=== PATIENT | male | born 1965 | race Caucasian/White ===

== ENCOUNTER 2025-06-23 11:32 | Outpatient (RCR) | payer SELFPAY ==
[2025-06-23] MEDS: Normal Saline Flush 10 ML SYR IVP (11:47)
[2025-06-23 11:55] LABS: Abs Immature Grans 0.03 10^3/uL (0.0-0.06); HCT 38.1 % (40.0-50.0); HGB 12.9 g/dL (13.5-17.5); Immature Grans % 0.4 %; MCH 32.0 pg (27.0-33.0); MCHC 33.9 % (32.0-36.0); MCV 95 fL (80-95); MPV 9.6 fL (8.0-11.0); Platelet Count 279 10^3/uL (130-400); RBC 4.03 10^6/uL (4.36-5.78); RDW 13.2 % (11.8-14.1); RDW-SD 46.0 fL; WBC 7.01 10^3/uL (4.4-10.8)
[2025-06-23 12:19] LABS: ALT 40 U/L (16-63); AST 18 U/L (15-37); Albumin 4.0 g/dL (3.4-5.0); Alkaline Phosphatase 99 U/L (46-116); Anion Gap 10.0 mmol/L (3-11); BUN 16 mg/dL (7-18); Bilirubin, Total 0.4 mg/dL (0.2-1.0); CO2 25.0 mmol/L (21.0-32.0); Calcium 9.2 mg/dL (8.5-10.1); Chloride 107 mmol/L (98-107); Estimated GFR 85.63 (mL/min/1.73m2); Glucose 109 mg/dL (74-106); Magnesium 2.2 mg/dL (1.8-2.4); Potassium 4.1 mmol/L (3.5-5.1); Sodium 142 mmol/L (136-145); Total Protein 7.7 g/dL (6.4-8.2)
== END 2025-06-27 23:59 | disposition home or self-care (01) ==
LOC: INF 11:32
PROVIDERS: Visit Provider Internal Medicine Hematology
DX: Z45.2 Encounter for adjustment and management of vascular access device (principal); C02.9 Malignant neoplasm of tongue, unspecified
CPT/HCPCS: 36591; 80053; 83735; 85025

== ENCOUNTER 2025-07-21 03:17 | Outpatient (RCR) | payer BC, SELFPAY ==
[2025-06-30 10:37] LABS: Abs Immature Grans 0.21 10^3/uL (0.0-0.06); HCT 35.4 % (40.0-50.0); HGB 11.8 g/dL (13.5-17.5); Immature Grans % 2.2 %; MCH 31.2 pg (27.0-33.0); MCHC 33.3 % (32.0-36.0); MCV 94 fL (80-95); MPV 9.5 fL (8.0-11.0); Platelet Count 295 10^3/uL (130-400); RBC 3.78 10^6/uL (4.36-5.78); RDW 12.9 % (11.8-14.1); RDW-SD 44.5 fL; WBC 9.56 10^3/uL (4.4-10.8)
[2025-06-30] MEDS: Normal Saline Flush 10 ML SYR IVP (10:52)
[2025-06-30 11:17] LABS: ALT 39 U/L (16-63); AST 14 U/L (15-37); Albumin 3.7 g/dL (3.4-5.0); Alkaline Phosphatase 95 U/L (46-116); Anion Gap 9.4 mmol/L (3-11); BUN 17 mg/dL (7-18); Bilirubin, Total 0.3 mg/dL (0.2-1.0); CO2 25.6 mmol/L (21.0-32.0); Calcium 9.5 mg/dL (8.5-10.1); Chloride 106 mmol/L (98-107); Estimated GFR 100.69 (mL/min/1.73m2); Glucose 87 mg/dL (74-106); Magnesium 1.9 mg/dL (1.8-2.4); Potassium 3.8 mmol/L (3.5-5.1); Sodium 141 mmol/L (136-145); Total Protein 7.3 g/dL (6.4-8.2)
[2025-07-07 10:13] LABS: Abs Immature Grans 0.11 10^3/uL (0.0-0.06); HCT 34.8 % (40.0-50.0); HGB 11.7 g/dL (13.5-17.5); Immature Grans % 1.1 %; MCH 31.6 pg (27.0-33.0); MCHC 33.6 % (32.0-36.0); MCV 94 fL (80-95); MPV 9.0 fL (8.0-11.0); Platelet Count 286 10^3/uL (130-400); RBC 3.70 10^6/uL (4.36-5.78); RDW 13.2 % (11.8-14.1); RDW-SD 45.3 fL; WBC 9.91 10^3/uL (4.4-10.8)
[2025-07-07 10:36] LABS: ALT 36 U/L (16-63); AST 12 U/L (15-37); Albumin 3.5 g/dL (3.4-5.0); Alkaline Phosphatase 99 U/L (46-116); Anion Gap 8.9 mmol/L (3-11); BUN 18 mg/dL (7-18); Bilirubin, Total 0.3 mg/dL (0.2-1.0); CO2 26.1 mmol/L (21.0-32.0); Calcium 8.6 mg/dL (8.5-10.1); Chloride 104 mmol/L (98-107); Estimated GFR 100.69 (mL/min/1.73m2); Glucose 94 mg/dL (74-106); Magnesium 2.0 mg/dL (1.8-2.4); Potassium 4.0 mmol/L (3.5-5.1); Sodium 139 mmol/L (136-145); Total Protein 7.2 g/dL (6.4-8.2)
[2025-07-07] MEDS: Normal Saline Flush 10 ML SYR IVP (10:40)
[2025-07-14 11:24] LABS: Abs Immature Grans 0.10 10^3/uL (0.0-0.06); HCT 36.2 % (40.0-50.0); HGB 12.0 g/dL (13.5-17.5); Immature Grans % 1.2 %; MCH 31.6 pg (27.0-33.0); MCHC 33.1 % (32.0-36.0); MCV 95 fL (80-95); MPV 9.0 fL (8.0-11.0); Platelet Count 262 10^3/uL (130-400); RBC 3.80 10^6/uL (4.36-5.78); RDW 13.3 % (11.8-14.1); RDW-SD 46.1 fL; WBC 8.33 10^3/uL (4.4-10.8)
[2025-07-14 11:40] LABS: Magnesium 2.0 mg/dL (1.6-2.6)
[2025-07-14 11:42] LABS: ALT 30 U/L (10-49); AST 16 U/L (<34); Albumin 4.4 g/dL (3.4-5.0); Alkaline Phosphatase 105 U/L (46-116); Anion Gap 7.5 mmol/L (3-11); BUN 22 mg/dL (9-23); Bilirubin, Total 0.40 mg/dL (0.2-1.2); CO2 24.5 mmol/L (20.0-31.0); Calcium 9.3 mg/dL (8.3-10.6); Chloride 107 mmol/L (98-107); Glucose 113 mg/dL (74-106); Potassium 4.3 mmol/L (3.5-5.1); Sodium 139 mmol/L (136-145); Total Protein 7.3 g/dL (5.7-8.2)
[2025-07-14] MEDS: Normal Saline Flush 10 ML SYR IVP (12:34)
[2025-07-21] MEDS: Normal Saline Flush 10 ML SYR IVP (11:15)
[2025-07-21 11:41] LABS: Abs Immature Grans 0.05 10^3/uL (0.0-0.06); HCT 34.8 % (40.0-50.0); HGB 11.9 g/dL (13.5-17.5); Immature Grans % 0.9 %; MCH 32.7 pg (27.0-33.0); MCHC 34.2 % (32.0-36.0); MCV 96 fL (80-95); MPV 9.2 fL (8.0-11.0); Platelet Count 181 10^3/uL (130-400); RBC 3.64 10^6/uL (4.36-5.78); RDW 13.4 % (11.8-14.1); RDW-SD 46.1 fL; WBC 5.77 10^3/uL (4.4-10.8)
[2025-07-21 12:00] LABS: Magnesium 1.8 mg/dL (1.6-2.6)
[2025-07-21 12:02] LABS: ALT 52 U/L (10-49); AST 20 U/L (<34); Albumin 4.4 g/dL (3.4-5.0); Alkaline Phosphatase 110 U/L (46-116); Anion Gap 10.8 mmol/L (3-11); BUN 29 mg/dL (9-23); Bilirubin, Total 0.40 mg/dL (0.2-1.2); CO2 23.2 mmol/L (20.0-31.0); Calcium 8.9 mg/dL (8.3-10.6); Chloride 107 mmol/L (98-107); Glucose 98 mg/dL (74-106); Potassium 3.9 mmol/L (3.5-5.1); Sodium 141 mmol/L (136-145); Total Protein 7.0 g/dL (5.7-8.2)
== END 2025-07-27 23:59 | disposition home or self-care (01) ==
LOC: INF 03:17
PROVIDERS: PCP Physician Assistant Medical; Visit Provider Internal Medicine Hematology
DX: C02.9 Malignant neoplasm of tongue, unspecified (principal)
CPT/HCPCS: 36591; 80053; 83735; 85025

== ENCOUNTER 2025-08-11 09:25 | Outpatient (REF) | payer BC, SELFPAY ==
[2025-08-11 09:31] LABS: Abs Immature Grans 0.02 10^3/uL (0.0-0.06); HCT 26.0 % (40.0-50.0); HGB 9.0 g/dL (13.5-17.5); Immature Grans % 0.7 %; MCH 32.4 pg (27.0-33.0); MCHC 34.6 % (32.0-36.0); MCV 94 fL (80-95); MPV 10.0 fL (8.0-11.0); Platelet Count 191 10^3/uL (130-400); RBC 2.78 10^6/uL (4.36-5.78); RDW 14.6 % (11.8-14.1); RDW-SD 46.7 fL; WBC 2.99 10^3/uL (4.4-10.8)
[2025-08-11 09:48] LABS: Magnesium 1.4 mg/dL (1.6-2.6)
[2025-08-11 09:50] LABS: ALT 69 U/L (10-49); AST 22 U/L (<34); Albumin 4.2 g/dL (3.2-5.0); Alkaline Phosphatase 92 U/L (46-116); Anion Gap 10.4 mmol/L (3-11); BUN 32 mg/dL (9-23); Bilirubin, Total 0.3 mg/dL (0.2-1.2); CO2 26.6 mmol/L (20.0-31.0); Calcium 10.4 mg/dL (8.3-10.6); Chloride 103 mmol/L (98-107); Glucose 97 mg/dL (74-106); Potassium 3.3 mmol/L (3.5-5.1); Sodium 140 mmol/L (136-145); Total Protein 6.7 g/dL (5.7-8.2)
== END 2025-08-11 09:26 | disposition home or self-care (01) ==
LOC: LBN 09:25
PROVIDERS: PCP Physician Assistant Medical; Visit Provider Internal Medicine Hematology
DX: C02.9 Malignant neoplasm of tongue, unspecified (principal)
CPT/HCPCS: 80053; 83735; 85025

== ENCOUNTER 2025-08-25 00:32 | Outpatient (RCR) | payer BC, SELFPAY ==
[2025-07-28] MEDS: Normal Saline Flush 10 ML SYR IVP (10:39)
[2025-07-28 11:14] LABS: Abs Immature Grans 0.02 10^3/uL (0.0-0.06); HCT 31.4 % (40.0-50.0); HGB 10.7 g/dL (13.5-17.5); Immature Grans % 0.5 %; MCH 32.3 pg (27.0-33.0); MCHC 34.1 % (32.0-36.0); MCV 95 fL (80-95); MPV 9.9 fL (8.0-11.0); Platelet Count 183 10^3/uL (130-400); RBC 3.31 10^6/uL (4.36-5.78); RDW 13.4 % (11.8-14.1); RDW-SD 45.3 fL; WBC 4.17 10^3/uL (4.4-10.8)
[2025-07-28 11:28] LABS: Magnesium 1.9 mg/dL (1.6-2.6)
[2025-07-28 11:41] LABS: ALT 65 U/L (10-49); AST 25 U/L (<34); Albumin 4.3 g/dL (3.2-5.0); Alkaline Phosphatase 102 U/L (46-116); Anion Gap 9.9 mmol/L (3-11); BUN 29 mg/dL (9-23); Bilirubin, Total < 0.20 mg/dL (0.2-1.2); CO2 25.1 mmol/L (20.0-31.0); Calcium 9.7 mg/dL (8.3-10.6); Chloride 107 mmol/L (98-107); Glucose 100 mg/dL (74-106); Potassium 3.9 mmol/L (3.5-5.1); Sodium 142 mmol/L (136-145); Total Protein 7.0 g/dL (5.7-8.2)
[2025-08-04 14:04] LABS: Abs Immature Grans 0.02 10^3/uL (0.0-0.06); HCT 28.3 % (40.0-50.0); HGB 9.9 g/dL (13.5-17.5); Immature Grans % 0.7 %; MCH 32.9 pg (27.0-33.0); MCHC 35.0 % (32.0-36.0); MCV 94 fL (80-95); MPV 9.8 fL (8.0-11.0); Platelet Count 200 10^3/uL (130-400); RBC 3.01 10^6/uL (4.36-5.78); RDW 13.6 % (11.8-14.1); RDW-SD 45.0 fL; WBC 2.81 10^3/uL (4.4-10.8)
[2025-08-04 14:20] LABS: Magnesium 1.8 mg/dL (1.6-2.6)
[2025-08-04 14:21] LABS: ALT 113 U/L (10-49); AST 35 U/L (<34); Albumin 4.3 g/dL (3.2-5.0); Alkaline Phosphatase 99 U/L (46-116); Anion Gap 9.1 mmol/L (3-11); BUN 31 mg/dL (9-23); Bilirubin, Total 0.30 mg/dL (0.2-1.2); CO2 25.9 mmol/L (20.0-31.0); Calcium 9.2 mg/dL (8.3-10.6); Chloride 107 mmol/L (98-107); Glucose 104 mg/dL (74-106); Potassium 3.5 mmol/L (3.5-5.1); Sodium 142 mmol/L (136-145); Total Protein 7.0 g/dL (5.7-8.2)
[2025-08-04] MEDS: Normal Saline Flush 10 ML SYR IVP (14:32)
[2025-08-18] MEDS: Normal Saline Flush 10 ML SYR IVP (11:50)
[2025-08-18 11:59] LABS: Abs Immature Grans 0.02 10^3/uL (0.0-0.06); HCT 26.4 % (40.0-50.0); HGB 8.7 g/dL (13.5-17.5); Immature Grans % 1.2 %; MCH 32.6 pg (27.0-33.0); MCHC 33.0 % (32.0-36.0); MCV 99 fL (80-95); MPV 9.6 fL (8.0-11.0); Platelet Count 177 10^3/uL (130-400); RBC 2.67 10^6/uL (4.36-5.78); RDW 16.2 % (11.8-14.1); RDW-SD 55.8 fL
[2025-08-18 12:06] LABS: Anisocytosis 2+
[2025-08-18 12:07] LABS: Polychromasia Present
[2025-08-18 12:08] LABS: WBC 1.71 10^3/uL (4.4-10.8)
[2025-08-18 12:13] LABS: Magnesium 2.0 mg/dL (1.6-2.6)
[2025-08-18 12:15] LABS: ALT 35 U/L (10-49); AST 19 U/L (<34); Albumin 4.3 g/dL (3.2-5.0); Alkaline Phosphatase 112 U/L (46-116); Anion Gap 8.6 mmol/L (3-11); BUN 28 mg/dL (9-23); Bilirubin, Total 0.2 mg/dL (0.2-1.2); CO2 24.4 mmol/L (20.0-31.0); Calcium 9.4 mg/dL (8.3-10.6); Chloride 108 mmol/L (98-107); Glucose 116 mg/dL (74-106); Potassium 4.8 mmol/L (3.5-5.1); Sodium 141 mmol/L (136-145); Total Protein 7.1 g/dL (5.7-8.2)
[2025-08-25] MEDS: Normal Saline Flush 10 ML SYR IVP (10:12)
[2025-08-25 10:21] LABS: Abs Immature Grans 0.09 10^3/uL (0.0-0.06); HCT 26.9 % (40.0-50.0); HGB 9.1 g/dL (13.5-17.5); MCH 33.7 pg (27.0-33.0); MCHC 33.8 % (32.0-36.0); MCV 100 fL (80-95); MPV 9.6 fL (8.0-11.0); RBC 2.70 10^6/uL (4.36-5.78); RDW 17.6 % (11.8-14.1); RDW-SD 61.8 fL; WBC 2.99 10^3/uL (4.4-10.8)
[2025-08-25 10:39] LABS: ALT 35 U/L (10-49); AST 21 U/L (<34); Albumin 4.4 g/dL (3.2-5.0); Alkaline Phosphatase 105 U/L (46-116); Anion Gap 7.8 mmol/L (3-11); BUN 25 mg/dL (9-23); Bilirubin, Total 0.2 mg/dL (0.2-1.2); CO2 23.2 mmol/L (20.0-31.0); Calcium 9.6 mg/dL (8.3-10.6); Chloride 109 mmol/L (98-107); Glucose 90 mg/dL (74-106); Magnesium 1.7 mg/dL (1.6-2.6); Potassium 4.4 mmol/L (3.5-5.1); Sodium 140 mmol/L (136-145); Total Protein 7.3 g/dL (5.7-8.2)
[2025-08-25 10:42] LABS: Platelet Count 293 10^3/uL (130-400); RBC Morphology Normal
== END 2025-08-27 23:59 | disposition home or self-care (01) ==
LOC: INF 00:32
PROVIDERS: PCP Physician Assistant Medical; Visit Provider Internal Medicine Hematology
DX: Z45.2 Encounter for adjustment and management of vascular access device (principal); C02.9 Malignant neoplasm of tongue, unspecified
CPT/HCPCS: 36591; 80053; 83735; 85025